=== PATIENT | male | born 1990 | race Caucasian/White ===

== ENCOUNTER 2017-02-05 20:06 | Emergency (ER) | payer OTHER, MEDICAID ==
[~2017-02-05] VITALS: Ht 185.4 cm; Wt 131.5 kg
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
[2017-02-05] MEDS ORDERED: fentaNYL INJECTION 100 MCG/2 ML AMP IVP STA (20:40)
[2017-02-05] MEDS ORDERED: WATER (STERILE) FOR INJECTION 20 ML ONE (20:43)
[2017-02-05] MEDS ORDERED: ceFAZolin 1,000 MG (ANCEF) VIAL IM ONE (20:45)
[2017-02-05] MEDS ORDERED: RX-TRIMETH/SULFA. 160-800 MG (BACTRIM DS) TAB PPK#2 PO STA (20:45)
[2017-02-05] MEDS ORDERED: RX-CEPHALEXIN (KEFLEX) 250 MG CAP PPK#4 PO STA (20:45)
[2017-02-05] MEDS ORDERED: IBUPROFEN 800 MG (MOTRIN) TAB PO ONE (20:45)
[2017-02-05] MEDS ORDERED: RX-NAPROXEN (NAPROSYN) 250 MG TAB PPK#4 PO STA (20:45)
[2017-02-05] MEDS ORDERED: RX-TRAMADOL 50 MG (ULTRAM) TAB PPK#4 PO STA (20:45)
[2017-02-05] MEDS ORDERED: RX-MUPIROCIN (BACTROBAN) 2% OINT 22 GM TUBE TOP STA (20:45)
[2017-02-05] MEDS ORDERED: TRAM-42 PO (20:47)
[2017-02-05] MEDS ORDERED: CEPH-507 PO (20:47)
[2017-02-05] MEDS ORDERED: SULF1TAB35 PO (20:47)
[2017-02-05] MEDS ORDERED: NAPR500T3 PO (20:47)
[2017-02-05] MEDS ORDERED: RX-CEPHALEXIN (KEFLEX) 250 MG CAP PPK#4 PO ONE (20:48)
[2017-02-05] MEDS ORDERED: RX-NAPROXEN (NAPROSYN) 250 MG TAB PPK#4 PO ONE (20:48)
[2017-02-05] MEDS ORDERED: RX-TRAMADOL 50 MG (ULTRAM) TAB PPK#4 PO ONE (20:48)
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
[2017-02-05] MEDS ORDERED: RX-MUPIROCIN (BACTROBAN) 2% OINT 22 GM TUBE ONE (20:49)
[2017-02-05] MEDS ORDERED: RX-TRIMETH/SULFA. 160-800 MG (BACTRIM DS) TAB PPK#2 PO ONE (20:49)
[2017-02-05 21:16] VITALS: BP 104/69
== END 2017-02-05 21:16 | disposition home or self-care (01) ==
LOC: EDUNIT# 20:06 → ER 20:10
DX: S61.432A Puncture wound without foreign body of left hand, initial encounter (principal); W34.09XA Accidental discharge from other specified firearms, initial encounter; Y92.009 Unspecified place in unspecified non-institutional (private) residence as the place of occurrence of the external cause; Y99.8 Other external cause status
CPT/HCPCS: 73130; 96372; 96374; 99283

== ENCOUNTER 2019-04-26 09:29 | Emergency (ER) | payer MEDICAID ==
[~2019-04-26] VITALS: Ht 182.9 cm; Wt 136.1 kg
[~2019-04-26 09:29] MED LIST: CEPH-507 PO; NAPR-915 PO; SULF1TAB35 PO; TRAM-42 PO
--- OUTSIDE RECORDS SUMMARY | 2019-04-26 09:34 | XMS REPORT ---
Author Author Migration, Doctor Organization [facility] Address Unknown Phone Unavailable Care Team Providers Care Battery Tester Name Role Phone Migration, Doctor Unavailable Unavailable PROBLEMS Type Condition ICD9-CM Code [id number] Code Onset Dates Condition Status SNOMED Code Problem Acute pharyngitis 462 Active 714370761 Problem Acute sinusitis, unspecified 461.9 Active [id number] ALLERGIES No Information ENCOUNTERS Encounter Location Date Diagnosis [facility] [id number] [place] [phone] Nov, Dental examination Z01.20 [facility] [id number] [place] [phone] Mar, Dental examination V72.2 [facility] [id number] [place] [phone] 14 Dec, 2014 [facility] [id number] [place] [phone] Dec, [facility] [address] [place] [phone] Sep, [facility] [address] [address] Sep, [facility] [id number] [address] May, [facility] [id number] [place] [phone] Sep, IMMUNIZATIONS No Known Immunizations SOCIAL HISTORY Never Assessed REASON FOR VISIT EMR-[facility] [place] PLAN OF CARE VITAL SIGNS MEDICATIONS No Known Medications RESULTS No Results PROCEDURES No Known procedures INSTRUCTIONS MEDICATIONS ADMINISTERED No Known Medications MEDICAL (GENERAL) HISTORY Type Description Date Medical History high blood pressure
--- OUTSIDE RECORDS SUMMARY | 2019-04-26 09:35 | XMS REPORT ---
Author Author Migration, Doctor Organization [facility] Address Unknown Phone Unavailable Care Team Providers Care Clay Puddler Name Role Phone Migration, Doctor Unavailable Unavailable PROBLEMS Type Condition ICD9-CM Code UZH42-OZ Code Onset Dates Condition Status SNOMED Code Problem Acute pharyngitis 462 Active 090487713 Problem Acute sinusitis, unspecified 461.9 Active 86474320 ALLERGIES No Information ENCOUNTERS Encounter Location Date Diagnosis [facility] [id number] [place] [phone] Nov, Dental examination Z01.20 [facility] [id number] [place] [phone] Mar, Dental examination V72.2 [facility] [id number] [place] [phone] 14 Dec, 2014 [facility] [id number] [place] [phone] Dec, [facility] [id number] [place] [phone] Sep, [facility] [address] [place] [phone] Sep, [facility] [address] [place] [phone] May, [facility] [id number] [place] [phone] Sep, IMMUNIZATIONS No Known Immunizations SOCIAL HISTORY Never Assessed REASON FOR VISIT EMR-[facility] [place] PLAN OF CARE VITAL SIGNS MEDICATIONS Medication Instructions Dosage Frequency Start Date End Date Duration Status Zithromax Z-Jeb 250 mg 2 tablet by Oral route 1 time per day for 1 days then take 1 tab daily on days 2-5 Sep, Active Amoxicillin 500 mg 2 capsule by Oral route 2 times per day for 10 day(s) Sep, Active RESULTS No Results PROCEDURES No Known procedures INSTRUCTIONS MEDICATIONS ADMINISTERED No Known Medications MEDICAL (GENERAL) HISTORY Type Description Date Medical History high blood pressure
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
[2019-04-26 10:04] LABS: BASOPHILS % (AUTO) 0 % (0-10); EOSINOPHILS # (AUTO) 0.1 10^3/uL (0.0-0.3); EOSINOPHILS % (AUTO) 2 % (0-10); HEMATOCRIT 44 % (40-54); HEMOGLOBIN 15.2 G/DL (13.3-17.7); LYMPHOCYTES % (AUTO) 39 % (12-44); MEAN CORPUSCULAR HEMOGLOBIN 30 PG (25-34); MEAN CORPUSCULAR HGB CONC 35 G/DL (32-36); MEAN CORPUSCULAR VOLUME 86 FL (80-99); MEAN PLATELET VOLUME 9.9 FL (7.4-10.4); MONOCYTES # (AUTO) 0.6 X 10^3 (0.0-1.0); MONOCYTES % (AUTO) 8 % (0-12); NEUTROPHILS # (AUTO) 3.9 X 10^3 (1.8-7.8); NEUTROPHILS % (AUTO) 52 % (42-75); PLATELET COUNT 244 10^3/uL (130-400); RED CELL DISTRIBUTION WIDTH 12.9 % (10.0-14.5); WHITE BLOOD COUNT 7.7 10^3/uL (4.3-11.0)
[2019-04-26 10:22] LABS: ALANINE AMINOTRANSFERASE 67 U/L (0-55); ALBUMIN 4.6 GM/DL (3.2-4.5); ALKALINE PHOSPHATASE 56 U/L (40-136); BILIRUBIN,TOTAL 0.5 MG/DL (0.1-1.0); BUN/CREATININE RATIO 14; CALCIUM 9.9 MG/DL (8.5-10.1); CARBON DIOXIDE 25 MMOL/L (21-32); CHLORIDE 103 MMOL/L (98-107); CREATININE SERUM 0.95 MG/DL (0.60-1.30); GFR ESTIMATED > 60; GLUCOSE 95 MG/DL (70-105); POTASSIUM 3.6 MMOL/L (3.6-5.0); SODIUM 141 MMOL/L (135-145); TOTAL PROTEIN 7.7 GM/DL (6.4-8.2)
--- NOTE | 2019-04-26 10:38 | Diagnostic Imaging Report ---
INDICATION: Dyspnea Portable upright AP view of the chest is obtained. Comparison is made to study of 11/06/2009. FINDINGS: Heart size and pulmonary vascularity are within normal limits, and the lungs are clear, bilaterally. IMPRESSION: Unremarkable chest. Dictated by: Dictated on workstation # [id number]
--- NOTE | 2019-04-26 10:44 | ED Respiratory ---
General Chief Complaint: Respiratory Problems Stated Complaint: SOA Nursing Triage Note: PT AMBULATES TO ROOM 5 WITH CO SOA BEGINNING APPROX 45 MINS PRIOR TO ARRIVAL. 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 NO CHEST PAIN NO COUGH, NO FEVER OR RECENT ILLNESS NO PALPITATIONS NO DIZZINESS NO SYNCOPE NO PARESTHESIAS OR MOTOR DEFICITS DENIES HISTORY OF RESPIRATORY PROBLEMS, CARDIAC PROBLEMS OR HISTORY OF THIS PROBLEM HAS HX OF HTN, BUT SELF-DC'D MEDICATIONS 7-8 YEARS AGO. PCP : DR. LISA Allergies and Home Medications Allergies Coded Allergies: No Known Allergies (Unverified Allergy, Mild, 11/06/09) Home Medications Cephalexin 500 Mg Capsule, 500 MG PO QID Prescribed by: LEANN HIRSCH on 02/05/172046 Naproxen 500 Mg Tablet, 500 MG PO BID Prescribed by: LEANN HIRSCH on 02/05/172046 Sulfamethoxazole/Trimethoprim 1 Each Tablet, 1 EACH PO BID Prescribed by: LEANN HIRSCH on 02/05/172046 Tramadol HCl 50 Mg Tablet, 50 MG PO Q4H Prescribed by: LEANN HIRSCH on 02/05/172046 Patient Home Medication List Home Medication List Reviewed: Yes Review of Systems Review of Systems Constitutional: no symptoms reported; No diaphoresis, No dizziness, No fever EENTM: no symptoms reported; No blurred vision Respiratory: see HPI; No cough, No orthopnea; short of breath; No wheezing Cardiovascular: no symptoms reported; No chest pain, No edema, No palpitations, No syncope Gastrointestinal: no symptoms reported Genitourinary: no symptoms reported Musculoskeletal: no symptoms reported Skin: no symptoms reported Psychiatric/Neurological: No Symptoms Reported Hematologic/Lymphatic: No Symptoms Reported Immunological/Allergic: no symptoms reported Past Hajjubu-Bmabpt-Htrorf Hx Patient Social History Alcohol Use: Occasionally Uses Recreational Drug Use: No Smoking Status: Never a Smoker 2nd Hand Smoke Exposure: No Recent Foreign Travel: No Contact w/Someone Who Travel: No Recent Infectious Disease Expo: No Recent Hopitalizations: No Physical Abuse: No Sexual Abuse: No Mistreated: No Fear: No Immunizations Up To Date Tetanus Booster (TDap): Less than 5yrs PED Vaccines UTD: Yes Seasonal Allergies Seasonal Allergies: No Past Medical History Surgeries: No Respiratory: No Cardiac: Yes (SELF DC'S BP MEDICATIONS 7-8 YEARS AGO, PER PT 04/26/19) Hypertension Neurological: No Reproductive Disorders: No Genitourinary: No Gastrointestinal: No Musculoskeletal: No Endocrine: No HEENT: No Hearing Impairment: Denies Cancer: No Psychosocial: No Integumentary: No Blood Disorders: No Physical Exam Vital Signs - First Documented 04/26/19 09:35 Temp 99.4 Pulse 98 Resp 15 B/P (MAP) 140/70 (93) Pulse Ox 98 O2 Delivery Room Air Capillary Refill : Less Than 3 Seconds Height: 6'0" Weight: 300lbs. oz. 136.571350co; BMI Method:Stated General Appearance: WD/WN, no apparent distress, other (SMILING, VERY TALKATIVE, NON-CHALANT, DOES NOT APPEAR TO BE IN ANY DISCOMFORT OR DISTRESS OR DYSPNEIC IN ANY WAY) HEENT: PERRL/EOMI, normal ENT inspection Neck: non-tender, full range of motion, supple, normal inspection; No carotid bruit Respiratory: normal breath sounds, no respiratory distress, no accessory muscle use Cardiovascular: normal peripheral pulses, regular rate, rhythm, no edema, no gallop, no JVD, no murmur; No JVD Gastrointestinal: non tender, soft Extremities: normal range of motion, non-tender, normal inspection, no pedal edema, no calf tenderness, normal capillary refill Neurologic/Psychiatric: recovery specialist II-XII nml as tested, no motor/sensory deficits, alert, normal mood/affect, oriented x 3 Skin: normal color, warm/dry Focused Exam Lactate Level 04/26/19 09:49: Lactic Acid Level 1.68 Lactic Acid Level Laboratory Tests Test 04/26/19 09:49 Lactic Acid Level 1.68 MMOL/L (0.50-2.00) Progress/Results/Core Measures Suspected Sepsis Recent Fever Within 48 Hours: No Infection Criteria Present: None New/Unexplained Altered Menta: No Sepsis Screen: No Definite Risk SIRS Temperature:99.4 Pulse: 98 Respiratory Rate: 15 Laboratory Tests 04/26/19 09:49: White Blood Count 7.7 Blood Pressure 140 /70 Mean: 93 04/26/19 09:49: Lactic Acid Level 1.68 Laboratory Tests 04/26/19 09:49: Creatinine 0.95, Platelet Count 244, Total Bilirubin 0.5 Results/Orders Lab Results Laboratory Tests Test 04/26/19 09:49 Range/Units White Blood Count 7.7 4.3-11.0 10^3/uL Red Blood Count 5.13 4.35-5.85 10^6/uL Hemoglobin 15.2 13.3-17.7 G/DL Hematocrit 44 40-54 % Mean Corpuscular Volume 86 80-99 FL Mean Corpuscular Hemoglobin 30 25-34 PG Mean Corpuscular Hemoglobin Concent 35 32-36 G/DL Red Cell Distribution Width 12.9 10.0-14.5 % Platelet Count 244 130-400 10^3/uL Mean Platelet Volume 9.9 7.4-10.4 FL Neutrophils (%) (Auto) 52 42-75 % Lymphocytes (%) (Auto) 39 12-44 % Monocytes (%) (Auto) 8 0-12 % Eosinophils (%) (Auto) 2 0-10 % Basophils (%) (Auto) 0 0-10 % Neutrophils # (Auto) 3.9 1.8-7.8 X 10^3 Lymphocytes # (Auto) 3.0 1.0-4.0 X 10^3 Monocytes # (Auto) 0.6 0.0-1.0 X 10^3 Eosinophils # (Auto) 0.1 0.0-0.3 10^3/uL Basophils # (Auto) 0.0 0.0-0.1 10^3/uL Sodium Level 141 135-145 MMOL/L Potassium Level 3.6 3.6-5.0 MMOL/L Chloride Level 103 98-107 MMOL/L Carbon Dioxide Level 25 21-32 MMOL/L Anion Gap 13 5-14 MMOL/L Blood Urea Nitrogen 13 7-18 MG/DL Creatinine 0.95 0.60-1.30 MG/DL Estimat Glomerular Filtration Rate > 60 BUN/Creatinine Ratio 14 Glucose Level 95 70-105 MG/DL Lactic Acid Level 1.68 0.50-2.00 MMOL/L Calcium Level 9.9 8.5-10.1 MG/DL Corrected Calcium 8.5-10.1 MG/DL Magnesium Level 2.0 1.8-2.4 MG/DL Total Bilirubin 0.5 0.1-1.0 MG/DL Aspartate Amino Transf (AST/SGOT) 33 5-34 U/L Alanine Aminotransferase (ALT/SGPT) 67 H 0-55 U/L Alkaline Phosphatase 56 40-136 U/L Troponin I < 0.028 <0.028 NG/ML B-Type Natriuretic Peptide < 10.0 <100.0 PG/ML Total Protein 7.7 6.4-8.2 GM/DL Albumin 4.6 H 3.2-4.5 GM/DL My Orders Orders - LEANN HIRSCH DO Ed Iv/Invasive Line Start (04/26/19 09:34) Ekg Tracing (04/26/19 09:34) O2 (04/26/19 09:34) Monitor-Rhythm Ecg Trace Only (04/26/19 09:34) Chest 1 View, Ap/Pa Only (04/26/19 09:34) BNP (04/26/19 09:34) Cbc With Automated Diff (04/26/19 09:34) Comprehensive Metabolic Panel (04/26/19 09:34) Lactic Acid Analyzer (04/26/19 09:34) Magnesium (04/26/19 09:34) Blood Culture (04/26/19 09:34) Troponin I (04/26/19 09:34) Ct Angio Chest W (04/26/19 10:29) Iohexol Injection (Omnipaque 350 Mg/Ml 1 (04/26/19 10:45) Received Contrast (Hold Metformin- Contr (04/26/19 10:45) Sodium Chloride Flush (Catheter Flush Sy (04/26/19 10:45) Ns (Ivpb) (Sodium Chloride 0.9% Ivpb Bag (04/26/19 10:45) Medications Given in ED Current Medications Medications Dose Ordered Sig/Wild Route Start Time Stop Time Status Last Admin Dose Admin Iohexol 100 ml ONCE ONCE IV 04/26/19 10:45 04/26/19 10:46 DC 04/26/19 11:05 88 ML Sodium Chloride 10 ml NEEDED PRN IV 04/26/19 10:45 04/26/19 11:05 10 ML Sodium Chloride 100 ml ONCE ONCE IV 04/26/19 10:45 04/26/19 10:46 DC 04/26/19 11:05 80 ML Vital Signs/I&O 04/26/19 04/26/19 04/26/19 09:35 10:38 10:40 Temp 99.4 99.0 Pulse 98 98 Resp 15 16 B/P (MAP) 140/70 (93) 136/103 Pulse Ox 98 98 98 O2 Delivery Room Air Room Air Room Air Capillary Refill : Less Than 3 Seconds Blood Pressure Mean: 93 Progress Note : Progress Note O2 SATS 98-100% ON ROOM AIR SYMPTOMS RESOLVED SPONTANEOUSLY SHORTLY AFTER ARRIVAL, AND PT REMAINED ASYMPTOMATIC FOR REMAINDER OF ER STAY ECG Initial ECG Impression Date: Apr 26, 2019 Initial ECG Impression Time: 09:41 Initial ECG Rate: 106 Initial ECG Rhythm: S.Tach Diagnostic Imaging Comments CXR--NO ACUTE PROCESS CT CHEST ANGIOGRAM--NO ACUTE PROCESS PER RADIOLOGIST REPORTS AT 1119 Reviewed: Reviewed by Me Departure Impression Primary Impression: SUBJECTIVE DYSPNEA Disposition: 01 HOME, SELF-CARE Condition: Improved Departure-Patient Inst. Referrals: NO,LOCAL PHYSICIAN (PCP/Family) Primary Care Physician Patient Instructions: Shortness of Breath (Dyspnea) (DC) Add. Discharge Instructions: RESUME NORMAL ACTIVITIES RETURN TO ER IF SYMPTOMS WORSEN/RETURN All discharge instructions reviewed with patient and/or family. Voiced understanding. LEANN HIRSCH DO Apr 26, 2019 10:44
[2019-04-26] MEDS ORDERED: CATHETER FLUSH 10 ML SYR IV PRN (10:45)
[2019-04-26] MEDS ORDERED: IOHEXOL 350 MG/ML 100 ML (OMNIPAQUE 350) VIAL IV ONE (10:45)
[2019-04-26] MEDS ORDERED: HOLD METFORMIN - RECEIVED CONTRAST 20 ML VIAL IV SCH (10:45)
[2019-04-26] MEDS ORDERED: NS 100 ML (IVPB) BAG IV ONE (10:45)
--- NOTE | 2019-04-26 11:17 | Diagnostic Imaging Report ---
PROCEDURE: CT angiography of the chest with contrast. TECHNIQUE: Multiple contiguous axial images were obtained through the chest after uneventful bolus administration of intravenous contrast. 3D reconstructed CTA MIP acquisitions were also performed. Auto Exposure Controls were utilized during the CT exam to meet ALARA standards for radiation dose reduction. INDICATION: Shortness of air. COMPARISON: No prior studies are available for comparison. FINDINGS: Pulmonary arterial system is without thromboembolism. No filling defects are seen within central, lobar or segmental branches. The thoracic aorta is normal caliber. No dissection is seen. There is no pericardial or pleural fluid identified. No pulmonary infiltrates, nodules or masses are seen. Upper abdomen does show low-density throughout the liver consistent with hepatic steatosis. IMPRESSION: 1. No evidence of pulmonary embolism or thoracic aortic dissection. 2. Hepatic steatosis. Dictated by: Dictated on workstation # [id number]
--- NOTE | 2019-04-26 11:18 | NUR ---
PT SITTING ON SIDE OF BED. PT STATES HE IS DOING FINE AND NEEDS NOTHING AT THIS TIME.
[2019-04-26 11:26] VITALS: BP 129/89
== END 2019-04-26 11:26 | disposition home or self-care (01) ==
LOC: EDUNIT# 09:29 → ER 09:30
DX: R06.00 Dyspnea, unspecified (principal); I10 Essential (primary) hypertension
CPT/HCPCS: 36415; 71045; 71275; 80053; 83605; 83735; 83880; 84484; 85025; 87040; 93005; 93041